=== PATIENT | male | born 1935 | race Caucasian/White ===

== ENCOUNTER 2023-10-02 17:11 | Emergency (ER) | payer OTHER ==
[~2023-10-02] VITALS: Ht 182.9 cm; Wt 80.7 kg
[2023-10-02] MEDS ORDERED: LEVOTHYROXINE100 MC1 PO (17:30)
[2023-10-02] MEDS ORDERED: COZAAR100 MG PO (17:30)
[2023-10-02] MEDS ORDERED: JANUVIA100 MG PO (17:30)
[2023-10-02] MEDS ORDERED: ATENOLOL100 MG PO (17:30)
[2023-10-02] MEDS ORDERED: SIMVASTATIN10 MG PO (17:31)
[2023-10-02] MEDS ORDERED: GLIMEPIRIDE1 MG (17:31)
[2023-10-02] MEDS ORDERED: VITAMIN D3100 GM MC (17:31)
[2023-10-02 18:54] LABS: PH,URINE 5.5 (5.0-8.0); URINE APPEARANCE Clear; URINE BILIRRUBIN Negative (NEGATIVE); URINE BLOOD Negative; URINE COLOR Yellow; URINE GLUCOSE Negative (NEGATIVE); URINE LEUKOCYTE Negative; URINE NITRATE Negative; URINE UROBILINOGEN 0.2 E.U./dl
[2023-10-02 18:59] LABS: HEMOGLOBIN 13.3 g/dL (13-16.00); MEAN CELL VOLUME 88.2 fL (80.0-100.00); MEAN CORPUSCULAR HEMOGLOBIN 30.9 pg (27.00-32.0); PLATELET COUNT 184 K/uL (150-450); RED BLOOD COUNT 4.31 M/uL (4.00-6.00); RED CELL DISTRIBUTION WIDTH 13.3 % (11.5-14.5)
[2023-10-02 19:04] LABS: URINE EPITHELIAL CELLS 0.6 uL (0.0-38.8); URINE PROTEIN 100 (NEGATIVE); URINE RBC 1.1 uL (0.0-20.8); URINE WBC 1.2 uL (0.0-23.2)
[2023-10-02 19:34] LABS: INR 1.01; PARTIAL THROMBOPLASTIN TIME 26.9 SECONDS (22.0-34.0); PROTHROMBIN TIME 10.6 SECONDS (9.0-11.5)
[2023-10-02 19:35] LABS: CALCIUM 9.5 mg/dL (8.5-10.1); CREATININE SERUM 1.23 mg/dL (0.70-1.30); GFR 55.66; POTASSIUM 4.38 mEq/L (3.5-5.1)
== END 2023-10-03 00:19 | disposition home or self-care (01) ==
LOC: ER 17:12
PROVIDERS: General Practice
DX: G45.8 Other transient cerebral ischemic attacks and related syndromes (principal); R47.1 Dysarthria and anarthria; E11.9 Type 2 diabetes mellitus without complications; Z79.84 Long term (current) use of oral hypoglycemic drugs; I10 Essential (primary) hypertension; Z91.041 Radiographic dye allergy status; Z20.822 Contact with and (suspected) exposure to COVID-19
CPT/HCPCS: 70551

== ENCOUNTER 2023-10-05 09:13 | Outpatient (CLI) | payer OTHER ==
[~2023-10-05 09:13] MED LIST: ATENOLOL100 MG PO; COZAAR100 MG PO; GLIMEPIRIDE1 MG; JANUVIA100 MG PO; LEVOTHYROXINE100 MC1 PO; SIMVASTATIN10 MG PO; VITAMIN D3100 GM MC
== END 2023-10-05 09:26 | disposition home or self-care (01) ==
LOC: NUCLEAR 09:13
PROVIDERS: ATTEND Psychiatry & Neurology Clinical Neurophysiology
DX: I48.91 Unspecified atrial fibrillation (principal)

== ENCOUNTER 2023-10-11 10:44 | Outpatient (CLI) | payer OTHER | END 2023-10-11 10:52 | disposition home or self-care (01) | LOC: NUCLEAR 10:44 | PROVIDERS: ATTEND Psychiatry & Neurology Clinical Neurophysiology | DX: I63.30 Cerebral infarction due to thrombosis of unspecified cerebral artery (principal) ==

== ENCOUNTER 2025-04-10 09:13 | Emergency (ER) | payer OTHER ==
[~2025-04-10] VITALS: Ht 180.3 cm; Wt 72.6 kg
[2025-04-10] MEDS ORDERED: LEVO-T88 MCG PO (10:39)
[2025-04-10] MEDS ORDERED: PEPCID AC20 MG PO (10:40)
[2025-04-10] MEDS ORDERED: GLIMEPIRIDE2 MG (10:41)
[2025-04-10] MEDS ORDERED: ATORVASTATIN CA40 MG PO (10:41)
[2025-04-10] MEDS ORDERED: KETOROLAC TROMETHAMINE 60 MG VIAL IM STA (11:05)
[2025-04-10] MEDS ORDERED: hydrOXYzine PAMOATE 50 MG CAPSULE PO STA (11:06)
[2025-04-10] MEDS ORDERED: hydrOXYzine PAMOATE 50 MG CAPSULE PO ONE (11:07)
[2025-04-10] MEDS ORDERED: KETOROLAC TROMETHAMINE 60 MG VIAL IM ONE (11:07)
[2025-04-10 12:14] LABS: COVID-19 AG NEGATIVE (NEGATIVE); INFLUENZA A AG NEGATIVE (NEGATIVE); INFLUENZA B AG NEGATIVE (NEGATIVE)
[2025-04-10 12:23] LABS: BASO % 0.3 % (0.1-1.2); EOS # 0.01 (0.04-0.54); EOS % 0.1 % (0.7-7.0); HEMATOCRIT 43.7 % (40.1-51.0); LYMPH # 1.72 (1.18-3.74); LYMPH % 19.1 % (19.3-53.1); MEAN CORPUSCULAR HEMOGLOBIN 30.5 pg (25.6-32.2); NEUT # 6.28 (1.56-6.13); NEUT % 69.9 % (34.0-71.1); PLATELET COUNT 174 K/uL (163-369); RED BLOOD COUNT 4.91 M/uL (4.63-6.08); RED CELL DISTRIBUTION WIDTH 12.6 % (11.6-14.4)
[2025-04-10 12:54] LABS: CALCIUM 9.9 mg/dL (8.5-10.1); CREATININE SERUM 1.23 mg/dL (0.70-1.30); GFR 55.53; POTASSIUM 4.53 mEq/L (3.5-5.1)
== END 2025-04-10 14:05 | disposition home or self-care (01) ==
LOC: ER 09:13
PROVIDERS: General Practice
DX: R51.9 Headache, unspecified (principal); Z91.013 Allergy to seafood; Z91.041 Radiographic dye allergy status; I10 Essential (primary) hypertension; Z86.73 Personal history of transient ischemic attack (TIA), and cerebral infarction without residual deficits; Z20.822 Contact with and (suspected) exposure to COVID-19
CPT/HCPCS: 36415; 70450; 93005; 96372; 99284; J1885